=== PATIENT | female | born 1950 ===

== ENCOUNTER 2023-10-26 08:23 | Outpatient (CLI) | payer MEDICARE, OTHER, SELFPAY ==
[2023-11-12 13:31] VITALS: BMI 32.5
--- NOTE | 2023-11-12 13:31 | WPDSLEEPSTUD ---
Sleep Study Date of Study: 10/26/23 Ordering Provider: NAHUM KHAN Interpreting Physician: Cindi Ritter DO Sleep Study Type: CPAP Titration Height: 1.52 m Weight: 75.75 kg Body Mass Index: 32.5 Neck Circumference (inches): 15.5 [place]: 5 Reason for Sleep Study Previous PSG in 01/2020 showed overall AHI of 19.5. Was prescribed CPAP 7 cm H2O. Had a knee surgery and had low oxygen saturation readings despite using CPAP. She used supplemental oxygen along with CPAP while she was in the hospital. Nocturnal oximetry on 09/27/2023 showed a total of 20 min and 21 seconds with SpO2<88%. KERWIN of 20.5. CPAP Compliance data shows 100% use with a residual AHI of 11.6 when on 7 cm H2O with EPR of 2. Sleep History The patient is a 72-year-old female with depression, GERD, hyperlipidemia insomnia, COPD, hypothyroidism, history of tobacco use and previously diagnosed sleep apnea that had a sleep study ordered by her ENT physician due to an elevated residual AHI. The patient denies awakening from sleep short of breath. She occasionally awakens at night with heartburn, belching or cough. She denies having trouble sleeping when she has a cold. She denies waking up gasping for air throughout the night. She frequently has breathing problems at night observed by herself or others. She denies sweating excessively at night. She denies having heart palpitations or irregular heartbeats during the night. She rarely falls asleep during the day but never while driving. She denies sleep paralysis, cataplexy and hypnagogic / hypnopompic hallucinations. She denies having trouble at school or work due to sleepiness. She denies feeling afraid of going to sleep. She rarely has nightmares. She occasionally remembers her dreams. She denies having thoughts racing through her mind. She denies feeling sad, depressed or anxious. She denies having muscular tension. She rarely notices parts of her body jerk. She rarely has crawling and aching feelings in her legs. She denies having leg pain during the night. She denies grinding her teeth during sleep and denies awakening with morning jaw pain. She is rarely bothered by pain during the day and rarely awakened by pain during the night. She denies waking up feeling stiff in the morning. She denies waking up with sore or achy muscles. She denies waking up with pain in the neck, spine or other joints. She goes to bed between 10:00 p.m. to 12:00 a.m. on both weekdays and weekends. The amount of time it takes for her to fall asleep is variable. She typically does not wake up throughout the night. She wakes up between 8:29 a.m. on both weekdays and weekends. She typically gets 8-9 hours of sleep per night. She will spend 1 hour an bed after waking up in the morning. She currently lives alone. She denies consuming any caffeinated beverages within 2 hours of bedtime. She denies engaging in physical exercise before bedtime. She will read before falling asleep. She denies watching television before falling asleep. She denies taking naps in the afternoon or evening. She has 1 caffeinated latte in the morning along with 1 diet soda. She rarely consumes alcoholic beverages. She quit smoking cigarettes 12 years ago. She denies recreational drug use. Sleep Procedure A full night polysomnogram using the [employer] multi-channel system recorded the standard physiologic parameters including EEG, EOG, submentalis EMG, anterior tibialis EMG, EKG, body position, nasal and oral airflow using PAP device flow signal.? Respiratory parameters of chest and abdominal movements were recorded with Respiratory Inductance Plethysmography belts. Oxygen saturation was recorded by pulse oximetry. Video monitoring was also performed. Sleep stages, periodic limb movements, and EEG arousals were scored in 30 second epochs according to the criteria of the AASM Scoring Manual. The Apnea-Hypopnea Index was calculated using CMS guidelines for definition of
== END 2023-10-27 06:13 | disposition home or self-care (01) ==
LOC: ANHCSM 08:32
PROVIDERS: PCP Family Medicine
DX: G47.33 Obstructive sleep apnea (adult) (pediatric) (principal)
CPT/HCPCS: 95811